=== PATIENT | male | born 1980 | race Two or more races ===

== ENCOUNTER → 2018-05-12 | Outpatient (CLI) | payer BC ==
[~2018-05-12] MED LIST: GADOBUTROL 10 ML VIAL IVP ONE; GLUCAGON HCL 0.3 MG in SYRINGE 0.3 ML IVP ONE
== END ==
LOC: FIMAGING 08:55
PROVIDERS: ATTEND Internal Medicine Gastroenterology
DX: K50.80 Crohn's disease of both small and large intestine without complications (principal); K52.9 Noninfective gastroenteritis and colitis, unspecified
CPT/HCPCS: A9585; J1610

== ENCOUNTER → 2018-08-03 | Outpatient (CLI) | payer BC | LOC: EMCIMAGING 14:21 | PROVIDERS: ATTEND Nurse Practitioner Family | DX: R20.0 Anesthesia of skin (principal); R29.898 Other symptoms and signs involving the musculoskeletal system | CPT/HCPCS: 72040-PN ==